=== PATIENT | female | born 1975 | race Caucasian/White ===

== ENCOUNTER 2023-05-28 11:05 | Outpatient (OUT) | payer OTHER, SELFPAY ==
[2023-05-28 11:29] LABS: Basophils Absolute Auto 0.1 10^3/uL (0.0-0.1); Eosinophils Absolute Auto 0.2 10^3/uL (0.0-0.7); Eosinophils Percent Auto 2.8 % (0.9-7.0); Hematocrit 42.3 % (36.0-48.0); Hemoglobin 12.3 g/dL (12.0-16.0); Immature Granulocytes Abs Auto 0.04 10^3/uL (0.00-0.03); Immature Granulocytes Pct Auto 0.6 % (0.0-0.5); Mean Corpuscular HGB Conc 29.1 g/dL (29.9-35.2); Mean Corpuscular Hemoglobin 24.1 pg (26.7-34.0); Mean Corpuscular Volume 82.9 fL (81.0-99.0); Mean Platelet Volume 10.3 fL (9.5-13.5); Monocytes Absolute Auto 0.4 10^3/uL (0.3-0.8); Monocytes Percent Auto 5.2 % (1.7-12.0); Neutrophils Absolute Auto 4.4 10^3/uL (1.4-6.5); Neutrophils Percent Auto 62.4 % (43.0-75.0); Platelet Count 247 10^3/uL (150-450); Red Cell Distribution Width 17.4 % (11.0-15.0); White Blood Count 7.1 10^3/uL (4.0-11.0)
[2023-05-28 12:06] LABS: Alanine Aminotransferase 15 U/L (14-59); Albumin Globulin Ratio 0.9; Albumin Level 3.5 g/dL (3.4-5.0); Alkaline Phosphatase 87 U/L (46-116); Anion Gap 8.8; Aspartate Amino Transferase 12 U/L (15-37); BUN Creatinine Ratio 15.7; Bilirubin Total 0.3 mg/dL (0.2-1.0); Calcium 8.9 mg/dL (8.5-10.1); Carbon Dioxide 28.1 mmol/L (21.0-32.0); Chloride 104 mmol/L (98-107); Chol HDL Ratio 5.2; Cholesterol 228 mg/dL (<=200); Estimated GFR (African America >60 (>=60); Estimated GFR (Non-African Ame >60 (>=60); Globulin 3.8 g/dL; Glucose 96 mg/dL (74-106); HDL Cholesterol 44 mg/dL (40-60); Potassium 3.9 mmol/L (3.5-5.1); Sodium 137 mmol/L (136-145); Total Protein 7.3 g/dL (6.4-8.2); Triglycerides 126 mg/dL (<=150); VLDL CHOLESTEROL 25.2 mg/dL
[2023-05-28 13:38] LABS: Percent Iron Saturation 9.2 %
== END 2023-05-28 11:06 | disposition home or self-care (01) ==
LOC: LAB 11:06
PROVIDERS: PCP Internal Medicine; Visit Provider Internal Medicine
DX: I10 Essential (primary) hypertension (principal); I87.2 Venous insufficiency (chronic) (peripheral); D64.9 Anemia, unspecified; E78.00 Pure hypercholesterolemia, unspecified
CPT/HCPCS: 36415; 80053; 80061; 82607; 82728; 82746; 83540; 83550; 85025

== ENCOUNTER 2025-08-02 12:45 | Outpatient (OUT) | payer OTHER, SELFPAY ==
--- NOTE | 2025-08-02 | MM_ITS ---
Patient Name: KENYATTA EDEN MR#: [id number] : 1975 Exam Date: 08/02/2025 Ordering Doctor: DR KATHLEEN MONTGOMERY D.O. RADIOLOGY REPORT PROCEDURE: MM TOMOSYNTHESIS SCREENING BI COMPARISON: MM TOMOSYNTHESIS SCREENING BI, 02/15/2020. MM TOMOSYNTHESIS SCREENING BI, 12/20/2018. INDICATIONS: SCREENING FOR MALIGNANCY OF BREASTS Calculator Name NCI Breast Cancer Risk Assessment Tool 5 Year Breast Cancer Risk 1.00% Lifetime Breast Cancer Risk 10.00% Personal Breast Cancer No Personal Ovarian Cancer No Treatments None Family Cancers None LOCATION: [facility] BREAST COMPOSITION: There are scattered areas of fibroglandular density. FINDINGS: DIAGNOSTIC CATEGORY 1--NEGATIVE. RIGHT BREAST: No significant suspicious finding. LEFT BREAST: No significant suspicious finding. RECOMMENDATIONS: ROUTINE MAMMOGRAM AND CLINICAL EVALUATION IN 12 MONTHS. Dictated by: Chirag Miranda DO on 08/05/2025 at 11:03 Approved by: Chirag Miranda DO on 08/05/2025 at 11:04
--- OUTSIDE RECORDS SUMMARY | 2025-08-02 12:50 | XMS_ITS | Clinical Summary ---
Author Organization [facility] Address [address], [address] [place] [address] Care Team Providers Care Retort Forker Name Role Phone Laura Sen MD Primary Care Provider [phone] Allergies No known active allergies Medications MedicationSigDispense QuantityRefillsLast FilledStart DateEnd DateStatus propranolol (INDERAL LA) 80 MG extended release capsule Active lisinopril (PRINIVIL;ZESTRIL) 5 MG tablet Take 1 tablet by mouth dailyActive hydroCHLOROthiazide (HYDRODIURIL) 25 MG tablet Take 1 tablet by mouth every jviimgc2708/21/2024ctive famotidine (PEPCID) 20 MG tablet Take 1 tablet by mouth dailyActive clotrimazole-betamethasone (LOTRISONE) 1-0.05 % cream Indications:Vulvar irritationApply topically 2 times daily as needed for vulvar irritation 15 g 4Active Active Problems Patient Care Coordination No te Formatting of this note migh t be different from the original. Hx clot in her eye NO ESTROGEN ProblemNoted DateDiagnosed DateHeart burn08/30/20242191Mviwrnhg58/19/2024Obesity 08/30/20247337Fbvwfvcmamdy89/19/2019 Immunizations ImmunizationAdministration DatesNext OmaBYiJ91/21/2017 Family History Medical HistoryRelationNameCommentsDeep Vein ThrombosisMaternal Grandmother HypertensionMotherOtherOtherNo family h/o ovarian or breast cancer.OtherPaternal GrandfatherCOPDRelationNameStatusCommentsFatherAliveMaternal GrandfatherAlive Maternal GrandmotherAliveMotherAliveOtherOtherPaternal GrandfatherDeceased Paternal GrandmotherAliveSisterAlive Social History Tobacco UseTypesPacks/DayYears UsedDateSmoking Tobacco: FormerSmokeless Tobacco: Never Tobacco Cessation:Counseling Given: No Comments:quit years ago Alcohol UseStandard Drinks/WeekCommentsNo0 (1 standard drink = 0.6 oz pure alcohol)[facility] UtilitiesAnswerDate RecordedIn the past 12 months has the Song[employer], gas, oil, or water [employer]versight Systems threatened to shut off services in your home?No 10/18/2024Overall Financial Resource Strain (CARDIA)AnswerDate RecordedHow hard is it for you to pay for the very basics like food, housing, medical care, and heating?Not hard at all08/30/2024HQ-2AnswerDate RecordedPHQ-9 Total Score0 10/18/2024Hunger Vital SignAnswerDate RecordedWithin the past 12 months, you worried that your food would run out before you got the money to buymore.Never true10/18/2024Within the past 12 months, the food you bought just didn't last and you didn't have money to get more.Never true10/18/2024PRAPARE - TransportationAnswerDate RecordedIn the past 12 months, has lack of transportation kept you from medical appointments or from getting medications?No 10/18/2024In the past 12 months, has lack of transportation kept you from meetings, work, or from getting things needed for daily living?No10/18/2024 Housing Stability Vital SignAnswerDate RecordedIn the last 12 months, was there a time when you were not able to pay the mortgage or rent on time?No10/18/2024In the past 12 months, how many times have you moved where you were living?0 10/18/2024t any time in the past 12 months, were you homeless or living in a care home (including now)?No10/18/2024Food InsecurityAnswerDate RecordedWithin the past 12 months, you worried that your food would run out before you got the money to buymore.Within the past 12 months, the food you bought just didn't last and you didn't have money to get more.CommentsNo Sex and Gender InformationValueDate RecordedSex Assigned at BirthNot on file Legal ArxWeqcfn28/04/2017 4:41 PM ESTGender IdentityNot on fileSexual OrientationNot on file Last Filed Vital Signs Vital SignReadingTime TakenCommentsBlood Fakfchhx800/76010/18/2024 4:00 PM EST Aemty245507/21/2022 11:51 AM ESTTemperature--Respiratory Xbra363407/21/2022 11:51 AM ESTOxygen Innpxssyia66%07/21/2022 11:51 AM ESTInhaled Oxygen Concentration-- Ialxai114.9 kg (260 lb)10/18/2024 4:00 PM ZERFrewsz494.6 cm (5' 6 )10/18/2024 4:00 PM ESTBody Mass Index41.9710/18/2024 4:00 PM EST Plan of Treatment Health MaintenanceDue DateLast DoneCommentsHIV dngfky9909/22/1990Hepatitis C sluxks7009/22/1993Hepatitis B vaccine (1 of 3 - 19+ 3-dose series)1994 Diabetes ztcfmk6109/22/20109007Jvjvvh61/11/8932Fswgfcmppam83/11/2021FIT/FOBT: Average risk2020igmoidoscopy/CT zsqthduhzggy26/11/2021reast cancer screen /01/2020, 12/20/2018, 12/12/2017, Additional history existsHPV (without or with Pap)/10/2017Colorectal Cancer Pmjjoq1810/05/2024 Fecal-DNA (Cologuard): Average risk/Flu vaccine (#1) /2COVID-19 Vaccine ( season), 01/12/2022, 12/22/2020, Additional history existsDepression Mnuzdi6810/18/2025 10/18/2024, 02/06/2025DTaP/Tdap/Td vaccine (4 - Td or Tdap)7111/02/2016, 08/23/2017, 08/23/2017Cervical cancer axhfct9510/18/2027Pap smear10/18/2027 10/18/2024, 10/14/2017Hepatitis A vaccineAged OutNo longer eligible based on patient's age to complete this topicHib vaccineAged OutNo longer eligible based on patient's age to complete this topicMeningococcal (ACWY) vaccineAged OutNo longer eligible based on patient's age to complete this topicMeningococcal B vaccineAged OutNo longer eligible based on patient's age to complete this topic Pneumococcal 0-49 years VaccineAged OutNo longer eligible based on patient's age to complete this topicPolio vaccineAged OutNo longer eligible based on patient's age to complete this topic Procedures Procedure NamePriorityDate/TimeAssociated DiagnosisCommentsGYN CYTOLOGYRoutine 10/18/2024 12:00 AM EST ZORAIDA DIGITAL SCREEN SELF REFERRAL W OR WO CAD RXBRBCRPHZaclxcm88/05/2020 2:35 PM EDT Breast cancer screening by mammogram HUMAN PAPILLOMAVIRUS (HPV) DNA PROBE THIN PREP HIGH OPZPYdsinhm88/02/2018 8:31 AM EST from Last 3 Months or Most Recently Relevant to Health Maintenance Results * SACK FILLER Cytology (10/18/2024 12:00 AM EST)ComponentValueRef RangeTest Method Analysis TimePerformed AtPathologist SignatureCytology ReportPath Number: [id number] DIAGNOSIS Imaged ThinPrep Pap - Cervical (1 monolayer slide): Specimen Adequacy: ? Satisfactory for evaluation. ? - Endocervical/transformation zone component present. Descriptive Diagnosis: ? Negative for intraepithelial lesion or malignancy. ?? Cytotech Screener: ??EY Electronically Signed Out Patrice Toscano CT(ASCP) ey/10/26/2024 Source of Specimen: A: Imaged ThinPrep Pap - Cervical (1 monolayer slide) HPV Reflex?......................HPV if Abnormal Clinical History Z01.419 Routine batch records clerk exam without abnormal findings Processing Lab: [address] [address] Interpretation performed at [address] [address] This Pap Test has been evaluated with the assistance of the ThinPrep Pap Test Imaging System. The Pap smear is a screening test primarily for squamous epithelial lesions, which is subject to both false negative and false positive results. Your patient should be reminded to consult you immediately if she experiences any suspicious signs or symptoms, regardless of her Pap smear result. GYNECOLOGIC CYTOLOGY REPORT Patient Name: KENYATTA GELLER [facility] Rec: [id number] [facility] ??[facility] ANATOMIC PATHOLOGY [address] [place] [address]. ??[place], [place] [address] bon [facility] LABSSpecimen (Source)Anatomical Location / LateralityCollection Method / VolumeCollection TimeReceived Time CERVICAL TBVFQLRK34/06/189701/03/2025 10:27 AM EST Narrative Authorizing ProviderResult TypeResult StatusWerafaela Polo MDPATHOLOGY/CYTOLOGY ORDERABLESFinal ResultPerforming OrganizationAddressCity/State/ZIP CodePhone Number [facility] [address] [place] [address] [facility] * ZORAIDA DIGITAL SCREEN SELF REFERRAL W OR WO CAD BILATERAL (02/15/2020 2:35 PM EDT)Anatomical RegionLateralityModalityBreastBilateralMammographySpecimen (Source)Anatomical Location / LateralityCollection Method / VolumeCollection TimeReceived Time02/15/2020 2:37 PM EDT Impressions 02/18/2020 8:18 AM EDT No mammographic evidence for malignancy. BIRADS: BIRADS - CATEGORY 2 Benign, no evidence of malignancy. ??Normal interval follow-up is recommended in 12 months. OVERALL ASSESSMENT - BENIGN A letter of notification will be sent to the patient regarding the results. The [employer] recommends annual mammograms for women 40 years and older. Narrative 02/18/2020 8:18 AM EDT EXAMINATION: SCREENING DIGITAL BILATERAL ??MAMMOGRAM WITH TOMOSYNTHESIS, 02/15/2020 2:35 pm TECHNIQUE: Screening mammography of the bilateral breasts was performed with tomosynthesis. ??2D standard and 3D tomosynthesis combination imaging performed through both breasts in the MLO and CC projection. ??Computer aided detection was utilized in the interpretation of this exam. COMPARISON: December 20, 2018. ??December 12, 2017. ??November 23, 2017. HISTORY: Screening. FINDINGS: There are scattered areas of fibroglandular density. There is no new dominant mass, suspicious microcalcification, or area of architectural distortion. Stable masses/asymmetries in the right breast. Procedure Note Sylvia Kumar MD - 02/18/2020 EXAMINATION: SCREENING DIGITAL BILATERAL MAMMOGRAM WITH TOMOSYNTHESIS, 02/15/2020 2:35pm TECHNIQUE: Screening mammography of the bilateral breasts was performed with tomosynthesis. 2D standard and 3D tomosynthesis combination imaging performed through both breasts in the MLO and CC projection. Computeraided detection was utilized in the interpretation of this exam. COMPARISON: December 20, 2018. December 12, 2017. November 23, 2017. HISTORY: Screening. FINDINGS: There are scattered areas of fibroglandular density. There is no newdominant mass, suspicious microcalcification, or area of architecturaldistortion. Stable masses/asymmetries in the right breast. IMPRESSION: No mammographic evidence for malignancy. BIRADS: BIRADS - CATEGORY 2 Benign, no evidence of malignancy. Normal interval follow-up isrecommended in 12 months. OVERALL ASSESSMENT - BENIGN A letter of notification will be sent to the patient regarding theresults. The [employer] recommends annual mammograms for women40 years and older. Authorizing ProviderResult TypeResult StatusSusan Saima Carranza [employer] - CNMIMG MAMMOGRAPHY ORDERABLESFinal Result * Human papillomavirus (HPV) DNA probe thin prep high risk (10/14/2017 8:31 AM EST)ComponentValueRef RangeTest MethodAnalysis TimePerformed AtPathologist SignatureHPV SOURCECERVICAL DLZNUSOZ83/05/2018 8:32 AM [employer] HPV Sample.THIN PREP10/17/2017 8:32 AM [employer] NanotechnologiesHPV, Genotype 16 Not KscenbxnODSJVQ67/05/2018 1:29 PM [facility] LAB[facility]ATORIESHPV, Genotype 18Not DpqzcletXRIBUY62/05/2018 1:29 PM [facility]IESHPV, High Risk OtherNot NjlofglrQYTBBZ94/05/2018 1:29 PM [facility]IESHPV, Interpretation 10/17/2017 1:29 PM ESTMERCY LABORATORIESComment: This test amplifies and detects DNA of 14 high-risk HPV types associated with cervical cancer and its precursor lesions (HPV types 16,18, 31, 33, 35, 39, 45, 51, 52, 56, 58, 59, 66, and 68). ? Sensitivity may be affected by specimen collection methods, stage of infection, and the presence of interfering substances. Results should be interpreted in conjunction with other available laboratory and clinical data. A negative high-risk HPV result does not exclude the possibility of future cytologic HSIL or underlying CIN2-3 or cancer. ? This test is intended for medical purposes only and is not valid for the evaluation of suspected sexual abuse or for other forensic purposes. Performed at [address] [address] ([phone] Specimen (Source)Anatomical Location / LateralityCollection Method / Volume Collection TimeReceived Time10/14/2017 8:31 AM EST10/17/2017 8:31 AM EST Narrative Authorizing ProviderResult TypeResult StatusSusan Saima Carranza [employer] CNM HEMATOLOGY ORDERABLESFinal ResultPerforming OrganizationAddressCity/State/ZIP CodePhone Number [facility] [address] [place], [place] [address] [phone] [place] [id number] [phone] from Last 3 Months or Most Recently Relevant to Health Maintenance Insurance Care Teams Team MemberRelationshipSpecialtyStart DateEnd Date Laura Sen MD [facility]14/17
--- OUTSIDE RECORDS SUMMARY | 2025-08-02 12:50 | XMS_ITS | Clinical Summary ---
Author Organization [facility] Address [id number] [place] [address] Care Team Providers Care Senior Electrical Controls Engineer Name Role Phone Laura Sen MD Primary Care Provider [phone] Allergies No known active allergies Medications MedicationSigDispense QuantityRefillsLast FilledStart DateEnd DateStatus propranolol LA (INDERAL LA) 120 mg 24 hr capsule Active CHOLESTYRAMINE LIGHT 4 gram powder powder 08/01/2017Active BOOSTRIX TDAP 2.5-8-5 Lf-mcg-Lf/0.5mL injection 08/23/2017Active propranolol LA (INDERAL LA) 80 mg 24 hr capsule 07/25/2017Active Social History Tobacco UseTypesPacks/DayYears UsedDateSmoking Tobacco: NeverSmokeless Tobacco: NeverAlcohol UseStandard Drinks/WeekCommentsNo0 (1 standard drink = 0.6 oz pure alcohol)ChildcareAnswerDate ZejkyafsVagoodvdqUeqnthw47/12/2019EmploymentAnswer Date TiyzsxtnLaltuqvwsdTbfcqsg90/12/2019Purpose - LifeAnswerDate RecordedPurpose and direction in ftemEeghwzn04/11/2021CommentsUnknownSex and Gender InformationValueDate RecordedSex Assigned at BirthNot on fileLegal SexFemale 04/17/2015 11:54 AM EDTGender IdentityNot on fileSexual OrientationNot on file Last Filed Vital Signs Vital SignReadingTime TakenCommentsBlood Tojspibo944/7612 10:23 AM EST Iwwnl7209 12:00 AM ESTTemperature--Respiratory Rate--Oxygen Saturation-- Inhaled Oxygen Concentration--Aqrczz869.3 kg (241 lb)10/05/2017 4:28 PM EST Btmlsv686.6 cm (5' 6 )08/24/2017 10:23 AM ESTBody Mass Index38.9110/25/2016 10:23 AM EST Plan of Treatment Health MaintenanceDue DateLast DoneCommentsDepression Jdvchaizi21/11/1988Tobacco Vemqnzaxg46/11/1988Adult BMI Eaygluvgh95/11/1994DTaP,Tdap and Td Vaccines (1 - Tdap)1994Pap Smear1996Influenza Ulxtiin3905/13/2025 Medical Devices Not on file Insurance Care Teams Team MemberRelationshipSpecialtyStart DateEnd Date Laura Sen MD [address] [place] [address] PCP - Htrewgs03/18/17
--- OUTSIDE RECORDS SUMMARY | 2025-08-02 12:50 | XMS_ITS | Clinical Summary ---
Author Organization [facility] Address [address] [place] [address] Care Team Providers Care Insulation Foreman Name Role Phone Unavailable Primary Care Provider Unavailabl e Social History Tobacco UseTypesPacks/DayYears UsedDateSmoking Tobacco: Never Assessed CommentsUnknownSex and Gender InformationValueDate RecordedSex Assigned at Not on fileLegal FzqGrhzmb27/15/2023 6:56 PM EDTGender IdentityNot on fileSexual OrientationNot on file Plan of Treatment Not on file Insurance
--- OUTSIDE RECORDS SUMMARY | 2025-08-02 12:50 | XMS_ITS | Clinical Summary ---
Author Organization [facility] Address [address] [place], [place] [id number] Care Team Providers Care Corporate Accounting Manager Name Role Phone Laura Sen MD Primary Care Provider [phone] Keith Macias DO Unavailable [phone] Allergies No known active allergies Medications MedicationSigDispense QuantityRefillsLast FilledStart DateEnd DateStatus PROPRANOLOL HCL (INDERAL ORAL) Take 80 mg by mouth once daily.Active lisinopril (ZESTRIL, PRINIVIL) 5 mg tablet Take 5 mg by mouth once daily.Active famotidine (PEPCID) 20 mg tablet Take 20 mg by mouth once daily.Active calcium carb-mag hydrox-simeth 1,200 mg-270 mg -80 mg/10 mL susp Take by mouth once daily.Active omeprazole (PRILOSEC) 40 mg capsule Indications:Heartburn,Globus sensationTake 1 capsule by mouth two times a day. 180 capsule 04/23/2024ctive Active Problems ProblemNoted DateDiagnosed DateHeart burnHypertensionMigraineObesity Family History Medical HistoryRelationCommentsHeartMaternal GrandfatherHypertensionMother fibromyalgia [Other]MotherRelationStatusCommentsFatherAliveMaternal Grandfather AliveMotherAlive Social History Tobacco UseTypesPacks/DayYears UsedDateSmoking Tobacco: FormerCigarettes 09/12/1985 - 09/12/1995Smokeless Tobacco: Never Tobacco Cessation:Counseling Given: Not Answered Alcohol UseStandard Drinks/WeekCommentsNo0 (1 standard drink = 0.6 oz pure alcohol)Area Deprivation IndexAnswerDate RecordedNational Score (1-100), lower number is lower hafn3161State Score (1-10), lower number is lower risk Not on file3Data from: https://www.neighborhoodatlas.medicine.[facility].edu/. Last address used for qmblhuurena[address]3CommentsUnknownSex and Gender InformationValueDate RecordedSex Assigned at BirthNot on fileLegal SexFemale 10/10/2014 3:30 PM ESTGender IdentityNot on fileSexual OrientationNot on file OccupationIndustryJob Start DateJob End DateclerkNot on fileNot on fileNot on file Last Filed Vital Signs Vital SignReadingTime TakenCommentsBlood Ilkdgxpx857/8909/27/2022 2:20 PM EST Twcqh288109/27/2022 2:20 PM ADQIamhjcmmkze10.1 ??C (97 ??F)09/27/2022 1:55 PM EST Respiratory Mqnj229309/27/2022 2:20 PM ESTOxygen Cmpkmkyvje928%09/27/2022 2:20 PM ESTInhaled Oxygen Concentration--Sropvn975.6 kg (246 lb)08/27/2022 10:20 AM EST Yamrbx042.6 cm (5' 6 )08/27/2022 10:20 AM ESTBody Mass Index39.7108/27/2022 10:20 AM EST Plan of Treatment Health MaintenanceDue DateLast DoneCommentsAnnual PCP Team Chronic Disease Visit 1993Anxiety Zmrydnzvd60/11/1994Depression Fmufkvqzk11/11/1994HIV Screening 1993Hepatitis C Fmszwjbgp67/11/1994Hepatitis B Vaccine (1 of 3 - 19+ 3- dose series)1994Cervical Cancer Anqsaakuy21/11/1997Mammogram Screening 2015CT Wnnvgiyteqnr31/11/0495Njkqyqzbcga34/11/2021Diabetes Screening 2020Fecal Occult Blood1Lipid Nlwkhqgwq66/11/2021Sigmoidoscopy 1Cologuard (FIT-DNA)502Colorectal Cancer Screening 5Covid-19 Vaccine ( season), 01/12/2022, 12/22/2020, Additional history existsInfluenza Vaccine (#1)512/02/2022 DTaP,Tdap,Td Vaccine (3 - Td or Tdap)7111/02/2016, 08/23/2017 Insurance Care Teams Team MemberRelationshipSpecialtyStart DateEnd Date Laura Sen MD [address] [place] [phone] PCP - GeneralFamily Medicine10/10/14 Keith Macias DO [address] [place] [phone] ReferringInternal Medicine05/28/22
== END 2025-08-02 12:46 | disposition home or self-care (01) ==
PROVIDERS: PCP Internal Medicine; Visit Provider Internal Medicine
DX: Z12.31 Encounter for screening mammogram for malignant neoplasm of breast (principal)
CPT/HCPCS: 77063; 77067